=== PATIENT | male | born 1940 | race Caucasian/White ===

== ENCOUNTER → 2023-11-06 06:21 | Day surgery (SDC) | payer OTHER, SELFPAY ==
[2023-11-06 07:51] LABS: Glucose - Point of Care 174 mg/dl (70-99)
== END ==
LOC: GI 06:21
PROVIDERS: ATTENDING PHYSICIAN Internal Medicine Gastroenterology
DX: R13.10 Dysphagia, unspecified (principal); Q39.9 Congenital malformation of esophagus, unspecified; K44.9 Diaphragmatic hernia without obstruction or gangrene; K22.2 Esophageal obstruction; K29.70 Gastritis, unspecified, without bleeding
CPT/HCPCS: 43249; 43239; 88305; 82962

== ENCOUNTER → 2024-05-10 07:40 | Outpatient (REF) | payer OTHER, SELFPAY | LOC: RAD 07:40 | PROVIDERS: ATTENDING PHYSICIAN Internal Medicine Gastroenterology; FAMILY PHYSICIAN Family Medicine | DX: K31.819 Angiodysplasia of stomach and duodenum without bleeding (principal) | CPT/HCPCS: 76700 ==

== ENCOUNTER → 2024-05-31 07:27 | Outpatient (REF) | payer OTHER, SELFPAY | LOC: HWRCS 07:27 | PROVIDERS: ATTENDING PHYSICIAN Nuclear Medicine Nuclear Cardiology; FAMILY PHYSICIAN Physician Assistant | DX: I25.10 Atherosclerotic heart disease of native coronary artery without angina pectoris (principal); R06.09 Other forms of dyspnea | CPT/HCPCS: 78452; 93017; A9500; J2785 ==

== ENCOUNTER → 2024-06-17 07:32 | Outpatient (REF) | payer OTHER, SELFPAY | LOC: RCS 07:32 | PROVIDERS: ATTENDING PHYSICIAN Nuclear Medicine Nuclear Cardiology; FAMILY PHYSICIAN Family Medicine | DX: I25.10 Atherosclerotic heart disease of native coronary artery without angina pectoris (principal); R06.09 Other forms of dyspnea | CPT/HCPCS: 93306 ==

== ENCOUNTER 2024-10-07 21:50 | Inpatient (IN) | payer OTHER, SELFPAY ==
[2024-10-07] VITALS (10 sets, daily range): BP systolic 102–153; BP diastolic 49–92; BMI 22.4
[2024-10-07 18:31] LABS: % Basophils 0.3 % (0-2); % Eosinophils 0.7 % (0-6); % Immature Granulocytes 0.2 % (0-0.5); % Lymphocytes 15.3 % (20.5-51.1); % Monocytes 9.1 % (1.7-9.3); % Neutrophils 74.4 % (42.2-75.2); Absolute Eosinophils 0.1 10^3/uL (0-0.7); Absolute Lymphocytes 1.4 10^3/uL (1.2-3.4); Absolute Monocytes 0.8 10^3/uL (0.1-0.6); Absolute Neutrophils 6.9 10^3/uL (1.4-6.5); Hematocrit 22.6 % (39.0-52.0); Hemoglobin 7.7 g/dL (13.0-18.0); Mean Corp Hgb Conc. 34.1 g/dL (33.0-37.0); Mean Corpuscular Hgb 31.4 pg (27.0-31.0); Mean Corpuscular Volume 92.2 fL (80.0-94.0); Nucleated Red Blood Cells % 0 % (-); Platelet Count 205 10^3/uL (130-400); Red Blood Cell Count 2.45 10^6/uL (4.70-6.10); Red Cell Dist. Width 12.6 % (11.5-14.5); White Blood Cell Count 9.2 10^3/uL (4.8-10.8)
[2024-10-07 18:46] LABS: ALT (SGPT) 19 U/L (0-50); AST (SGOT) 22 U/L (17-59); Albumin 3.6 g/dl (3.5-5.0); Alkaline Phosphatase 71 U/L (38-126); Blood Urea Nitrogen 49 mg/dl (9-20); Calcium 9.1 mg/dl (8.4-10.2); Carbon Dioxide 28 mmol/L (22-30); Chloride 103 mmol/L (98-107); Estimated Creatinine Clearance 28 ml/min; Glucose 224 mg/dl (70-99); Potassium 4.7 mmol/L (3.5-5.1); Sodium 138 mmol/L (135-145); Total Bilirubin 0.5 mg/dl (0.2-1.3); Total Protein 5.6 g/dl (6.3-8.2); eGFR 34.14
--- NOTE | 2024-10-07 19:54 | ED.GENMED ---
History of Present Illness
General
Chief Complaint: Fainting Sensation
Source: patient
Exam Limitations: none
Time Seen by Provider: 10/07/24 19:41
Nursing documentation reviewed up to this point in time: agreed with
History of Present Illness
History of Present Illness:
Patient to ED wt complaint of feeling weak, near syncopal episode at home. State he started feeling weak last PM. States he passed black stool. Today weakness became worse. Brought to ED via EMS for eval. Denies fever/chills, recent illness.
No n/v. No prior history of same.
Past History
Past History
ED Past Medical History: CAD, CVA, GERD, HTN, Hypercholesterolemia, NIDDM and Other (Patient has a heart murmur, jaundice, diverticulosis, esophageal structures, pancreatitis, impaired vision.)
ED Past Surgical History: Cardiac, Cholecystectomy and Other (Has had surgery for left eye, hernia surgery, bilateral foot surgery, CABG, pseudocyst of pancreas strain, multiple esophageal dilations, date place and then reversed)
Social History
Tobacco: Non-smoker
Alcohol: None
Drug: None
Personal:
Living: alone
Employment: Retired
Family History
Family History: Diabetes and Hypertension
Review of Systems
Review of Systems
Allergies reviewed?: Yes
All Other Systems: ROS reviewed and negative except as documented in HPI and ROS
Constitutional: Reports fatigue
EENT: Reports no symptoms
Respiratory: Reports no symptoms
Cardiac: Reports no symptoms
ABD/GI: Reports black stools
: Reports no symptoms
Musculoskeletal: Reports no symptoms
Skin: Reports no symptoms
Neurological: Reports weakness
Psychiatric: Reports no symptoms
Phy Exam
General Physical Exam
General Presentation: mild distress
General age: appears stated age
General Skin: warm and dry
General Habitus: frail
General Mental: alert
Cardiovascular Exam
Cardiovascular Exam: regular rate/rhythm and no edema
Pulmonary Exam
Pulmonary Exam: lungs clear and no respiratory distress
Gastrointestinal Exam
Gastrointestinal Exam: normal bowel sounds, non tender, soft, no organomegaly, non distended and no cva tenderness
Rectal Exam: normal external exam
Stool: maroon
Guaiac Status: grossly bloody - positive
Musculoskeletal Exam
Musculoskeletal Exam: full ROM and neuro vasc intact
Skin Exam
Skin Exam: normal color, warm/dry and no rash
Psychiatric Exam
Psychiatric Exam: normal mood/affect
Course
Orders/Labs/Results
Orders:
Orders
10/07/24 Dinner
NPO
Allow oral meds: Yes
Allow clear liquids: No
NPO with Ice Chips: Yes
10/07/24 17:37
EKG [Electrocardiogram (*1)] Urgent
Reason for Study: Syncope
EKG- Treatment ONCE
10/07/24 18:23
Complete Blood Count/With Diff Urgent
Comprehensive Metabolic Panel Urgent
10/07/24 19:53
* Blood Bank Products Urgent
Blood Bank Products: *Packed RBC Leuko(PRBC's)
Quantity: 1
Transfuse Today: Yes
Reason: Anemia
10/07/24 19:54
0.9% Sodium Chloride 1000 ml [Nss] 1,000 ml IV BOLUS
10/07/24 20:08
Pantoprazole [Protonix IV] 40 mg IV NOW STA
10/07/24 20:24
Type And Crossmatch [Type+Screen] Urgent
10/07/24 21:04
Admit/Transfer Patient As Directed
Co-Sign Provider:
Level of Care: Inpatient admission
Assign to:: Medical/Surgical
Physician / Group: Michelle Solano
Diagnosis: GI bleed, anemia
Reason for Hospitalization: GI bleed, anemia
Expected length of stay greater than two midnights?: Yes
ELOS- Estimated Length of Stay in days: 3
I certify the patient meets the requirements for IP care: Yes
10/07/24 21:05
Code Status As Directed
Resuscitation Status: Full Code
PRN Pain Medication Management As Directed
May give lesser potent ordered pain med per pt: Yes
preference::
Protocol:: Medication orders for pain may be administered in a
manner that supports deferring to patient preference
when the pt is:
- Requesting an ordered lesser potent pain medication.
Least to most potent pain medications are defined
as: acetaminophen < NSAID < tramadol < opioids
(morphine, oxycodone, hydromorphone).
- Requesting a lesser dose of the same medication IF
ORDERED.
- Requesting a less intrusive route of administration
if both routes are prescribed by the provider (PO <
IV).
10/07/24 22:00
Flush (0.9% Sodium Chloride) [Flush (Nss)] See Dose Instructions IV PER PROTOCOL
10/07/24 22:32
0.9% Sodium Chloride 1000 ml [Nss] 1,000 ml IV 80 mls/hr
Dextrose 50%-Water [Dextrose 50% Syringe] 12.5 grams IV [id number] PRN
Gabapentin [Neurontin] 600 mg PO QPM
Glucagon [GlucaGen] 1 mg IM PRN PRN
10/07/24 22:32
Activity As Directed
Activity Level: With Assistance
Bedside Glucose Monitoring As Directed
Frequency: AC&HS
Additional Instructions:: Change to q6h if pt on TPN, tube feeding or not eating
INT (Intravenous Needle Therapy) As Directed
Comment: Place 2 IV catheters of the largest bore possible until stable
Orthostatic Vital Signs As Directed
Orthostatic VS Frequency: Now
Comment: then every four hours for twenty-four hours
Pneumatic Compression Sleeves As Directed
Type: Knee high
Vital Signs As Directed
Frequency: Per unit guidelines
DX Deep Vein Thrombosis Video Routine
10/08/24 06:41
Basic Metabolic Panel IN AM
Complete Blood Count/No Diff IN AM
Ferritin IN AM
Glycohemoglobin (HgbA1c) IN AM
Iron IN AM
Total Iron Binding IN AM
Transferrin [S] IN AM
10/08/24 07:30
Insulin Aspart Corrective Low [Novolog Flexpen-Low Resistance] See Protocol SC AC
10/08/24 08:00
Gabapentin [Neurontin] 300 mg PO BID@0800,1200
Metoprolol [Lopressor] 25 mg PO DAILY
Pantoprazole [Protonix IV] 40 mg IV BID
10/08/24 18:00
Atorvastatin [Lipitor] 40 mg PO QPM
Metoprolol [Lopressor] 50 mg PO QPM
Abnormal Lab Results
10/07/24 10/07/24
18:23 20:24
RBC 2.45 L 10^6/uL
(4.70-6.10)
Hgb 7.7 L g/dL
(13.0-18.0)
Hct 22.6 L %
(39.0-52.0)
MCH 31.4 H pg
(27.0-31.0)
Absolute Neuts (auto) 6.9 H 10^3/uL
(1.4-6.5)
Absolute Monos (auto) 0.8 H 10^3/uL
(0.1-0.6)
Lymphocytes % 15.3 L %
(20.5-51.1)
BUN 49 H mg/dl
(9-20)
Creatinine 1.9 H mg/dL
(0.7-1.3)
Glucose 224 H mg/dl
(70-99)
Total Protein 5.6 L g/dl
(6.3-8.2)
Crossmatch IS Only See Detail
10/07/24 18:23
10/07/24 18:23
Vital Signs
Initial and Last Documented VS:
Initial Vital Signs
Pulse Resp
66 20
10/07/24 17:37 10/07/24 17:37
Last Documented Vital Signs
Temp Pulse Resp BP Pulse Ox
98.1 F 61 18 111/56 95
10/08/24 15:00 10/08/24 15:00 10/08/24 14:00 10/08/24 15:00 10/08/24 15:00
*Critical Care Note
Total Time (30-74mins, 75-104mins- exclusive of procedures): Not Applicable
Update Note
Update Note:
Patient to ED wth complaint of weakness, near syncope at home. Symptoms started last PM, worsened today. Reports black stools last PM, tonight maroon stool. Hg 7.7 (13.1 05/2024). Denies any abd pain. VSS, Order placed for 1uPRBC to be
transfused now. Case discussed with Dr. Arnold who agrees with findings and plan. Will admit to hospitalists service.
ED Attending Note
-
Portions of this chart may have been created with voice recognition software.� Occasional wrong word or��sound alike� substitutions may have occurred due to the inherent limitations of voice recognition software.
Discharge Plan
Departure
Patient Disposition: Admit
Date of Disposition: 10/07/24
Time of Disposition: 20:07
Presentation/result/management discussed w/ accepting MD/DO: Hospitalist
Condition: Fair
Covid-19: Not Applicable
Discharge Problem:
GI bleeding, Anemia
Interventions
Interventions:
*Risk Screen - Suicide Last Done: 10/07/24 17:40
*General Assessment Last Done: 10/07/24 17:40
*Neglect/Abuse Screening Last Done: 10/07/24 17:40
*ED- Fall Risk Assessment Last Done: 10/07/24 17:40
*ED COVID-19 Vaccine History Last Done: 10/07/24 17:40
*Nursing Disposition Last Done: 10/07/24 22:29
ED- Cardiac Assessment Last Done: 10/07/24 17:42
ED- Neurological Assessment Last Done: 10/07/24 17:42
Discharge Date and Time
Discharge Date/Time: 10/07/24 22:33
--- NOTE | 2024-10-07 20:12 | HPS.HSE ---
Family Physician
-
Family Physician: NOT KNOW UNKNOWN - PT DOES
Chief Complaint
-
generalized weakness
History of Present Illness
Patient is a 84-year-old male with past medical history significant for CAD, CVA, GERD, essential hypertension, hypercholesterolemia, diverticulosis, NIDDM and CKD III who presented to [facility] ED for evaluation of generalized weakness and near syncope.
Patient reports watching the [employer] game when he went to stand up he fell, denies hitting head and denies any injuries. He attempted to get up and stated he was too weak. He reports he noticed he was weak yesterday and last night had loose stools
that were dark. He denies any abdominal pain, nausea, vomiting or constipation.
Medical History
Past Medical History
Past Medical History: Reports Other
Additional Past Medical History:
CAD
CVA
GERD
essential hypertension
Hypercholesterolemia
NIDDM
CKD III
heart murmur
jaundice
diverticulosis
esophageal structures
pancreatitis
impaired vision
Past Surgical History: Reports Other
Additional Past Surgical History:
Cardiac cath with PCI
Cholecystectomy
surgery for left eye
hernia surgery
bilateral foot surgery
CABG
pseudocyst of pancreas
multiple esophageal dilations
Social History
Tobacco: Non-smoker
Alcohol: None
Drug: None
Personal:
Living: Alone
Employment: Retired
Family History
Family History: Not pertinent
Allergies / Home Medications
Allergies reflects when Allergies were last updated in [employer].
Home Medications with original date entered in [employer]
Allergy/Medication List:
Allergies
Allergy/AdvReac Type Severity Reaction Status Date / Time
lisinopril Allergy Intermediate Swelling Verified 05/28/23 14:52
Benzodiazepines Allergy HALLUCINATI Verified 05/28/23 14:52
ONS-SEVERE
hydromorphone Allergy SEVERE Verified 05/28/23 14:52
HALLUCINATIONS
lorazepam Allergy HALLUCINATI Verified 05/28/23 14:52
ONS
zolpidem tartrate (From Allergy Rash Verified 05/28/23 14:52
Ambien)
Home Medications
metoprolol tartrate 25 mg tablet 25 mg PO DAILY 10/19/08
aspirin 81 mg tablet,delayed release 81 mg PO QPM 11/17/12
gabapentin 300 mg capsule 300 mg PO BID@0800,1200 11/17/12
pantoprazole 40 mg tablet,delayed release 40 mg PO DAILY 06/27/16
atorvastatin 40 mg tablet 40 mg PO QPM 08/06/16
cholecalciferol (vitamin D3) 25 mcg (1,000 unit) tablet 1,000 units PO DAILY 08/06/16
multivitamin with folic acid 400 mcg tablet (Tab-A-Ara) 1 tab PO DAILY 08/06/16
furosemide 20 mg tablet (Lasix) 20 mg PO DAILY 02/08/23
metoprolol tartrate 25 mg tablet 50 mg PO QPM 02/08/23
omega 2-gse-mwd-fish oil 1,000 mg (120 mg-180 mg) capsule (Fish Oil) 1 cap PO BID 02/08/23
ferrous sulfate 325 mg (65 mg iron) tablet 325 mg PO DAILY 10/07/24
gabapentin 300 mg capsule 600 mg PO QPM 10/07/24
insulin aspart U-100 100 unit/mL (3 mL) subcutaneous pen (Novolog FlexPen U-100 Insulin aspart) 1 sliding scale dose SC AC 10/07/24
insulin glargine 100 unit/mL subcutaneous solution (Lantus U-100 Insulin) 15 unit SC HS 10/07/24
Review of Systems
-
History Source: Patient
Constitutional: Reports Other (generalized weakness)
Abdomen/GI: Reports Diarrhea and Black Stools
Physical Exam
Vital Signs
Vital Signs
Temp Pulse Resp BP Pulse Ox
97.9 F 61 12 102/52 97
10/07/24 17:42 10/07/24 19:00 10/07/24 19:00 10/07/24 18:00 10/07/24 19:00
Physical Exam
General: Well Developed, Well Nourished, No Apparent Distress, Comfortable and Conversant
HEENT: NormoCephalic and Atraumatic
Respiratory: Clear and Non Labored Respirations
Cardiac: S1/S2 and Regular Rhythm
Breast: Deferred by me
GI: Soft, Non Tender, Non Distended and Normal Bowel Sounds
Rectal: Hem Positive and Maroon Stools
Genito-urinary: Deferred by me
Musculoskeletal: No Clubbing, No Cyanosis and No Edema
Skin: Warm, Dry and IV/Catheter Site
Neuro: Awake, Alert, AO x 3 and Nonfocal/grossly intact
Psych: Calm and Intact Judgment/Insight
Laboratory Results
-
10/07/24 18:23
10/07/24 18:23
Laboratory Results
Total Bilirubin 0.5 mg/dl (0.2-1.3) 10/07/24 18:23
AST 22 U/L (17-59) 10/07/24 18:23
ALT 19 U/L (0-50) 10/07/24 18:23
Alkaline Phosphatase 71 U/L (38-126) 10/07/24 18:23
Data Reviewed
-
Medical Tests (Nuc Med, Echo, EKG etc): Report Reviewed by me (EKG: SINUS RHYTHM WITH 1ST DEGREE A-V BLOCK LEFT BUNDLE BRANCH BLOCK)
Lab Data: Labs Reviewed by me (hgb 7.7, hct 22.6, BUN 49, Creat 1.9, eGFR 28, est CrCl 28)
Impression/Plan
-
IMPRESSION/PLAN:
#GI bleed
hgb 7.7, hct 22.6
EKG: SINUS RHYTHM WITH 1ST DEGREE A-V BLOCK
LEFT BUNDLE BRANCH BLOCK
- Admit to telemetry
- Consult GI
- transfuse 1 unit PRBCs
- trend h/h
- iron studies
- NPO
- IVF NSS 80cc/hr
#CAD
#CVA
- hold aspirin
- continue atorvastatin
#GERD
- hold PO Protonix
#essential hypertension
- hold furosemide
- continue metoprolol
#Hypercholesterolemia
- continue atorvastatin
#NIDDM
- AccuCheck AC & HS
- SSI
- continue Lantus at 7 units while NPO
#CKD III
BUN 49, Creat 1.9, eGFR 28, est CrCl 28
- monitor BMP
#diverticulosis
Code status: full code
DVT prophylaxis: SCDs
[2024-10-07] MEDS: NSS 1000 IV ×2 (20:23→23:51)
[2024-10-07] MEDS: PROTONIX IV 40 MG IV (20:23)
--- NOTE | 2024-10-07 20:58 | W.PN.UPDATE ---
Update Note
Progress Note Update
This is an addendum to H&P written by Marion Avalos on 10/07/2024. Patient seen and examined independently with [facility]ER[facility].
84-year-old male past medical history of CAD status post CABG, type 2 diabetes, hypertension, hyperlipidemia, pancreatitis, peripheral neuropathy, iron deficiency anemia, GERD, reflux esophagitis with stricture, hiatal hernia, esophageal stenosis
status post dilation most recently 6 months ago, chronic kidney disease, presenting for weakness, near syncope, black stool per rectum.
Hemoglobin 7.7 from 13.1 previously. Blood sugar 220.
Concern for acute blood loss anemia secondary to upper GI bleeding. IV fluids given. Protonix 40 IV twice daily. 1 unit PRBC transfusion. NPO. GI consulted. Check iron studies.
Hold aspirin. Reduce insulin while NPO.
[2024-10-07] MEDS: LANTUS 0.07 UNITS SC (23:37)
[2024-10-07 23:38] LABS: Glucose - Point of Care 226 mg/dl (70-99)
[2024-10-07] MEDS: NEURONTIN PO (23:51)
[2024-10-08] VITALS (13 sets, daily range): BP systolic 15–141; BP diastolic 50–64; PULSE 65
[2024-10-08 06:05] LABS: Glucose - Point of Care 222 mg/dl (70-99)
[2024-10-08] MEDS: NOVOLOG FLEXPEN-LOW RESISTANCE 2 UNITS SC (06:08)
--- NOTE | 2024-10-08 06:46 | CON.GI ---
Addendum entered and electronically signed by Mariaelena Jean MD 10/08/24 12:46:
I saw and examined the patient.
The CLIENT ASSOCIATE's note was reviewed and I agree with the note.
Comment: Mr. Martínez is a very pleasant 84-year-old male with past medical history as listed below who was initially seeing Dr. Claire and after he retired was seeing Dr. Dubon and has a history of esophageal stenosis requiring multiple dilatations
in the past and was last dilated in October 2023 who now presents with symptomatic anemia with an episode of dark stools since Friday with dizziness and his hemoglobin on admission was noted to be 7.7 and was 13.1 in May. He denies any
abdominal pain or chest pain. On prior endoscopy in October he was also noted to have mild GAVE.
Assessment and plan acute blood loss anemia symptomatic he was on aspirin 81 mg but otherwise denies any use of NSAIDs or anticoagulation prior to admission. Started on PPI twice daily will schedule him for endoscopy and if that is unremarkable
will need to discuss with patient possible colonoscopy and capsule endoscopy. He did have mild GAVE noted on prior endoscopy could be the source of bleeding vs possible PUD/Irwin's erosions he has a history of medium hiatal hernia or small bowel
angioectasias versus colonic source..
Addendum entered and electronically signed by PANDA Hoover 10/08/24 08:32:
iron studies with iron 38, TIBC 308, iron sat 12 ferritin pending likely iron deficiency
Original Note:
Consultation
-
Date/Time Consultation Requested: 10/07/242229
Date/Time Consultation Performed: 10/08/24 0145
Requesting Provider: PANDA Rodriguez
Performing Provider: PANDA Ace, Mariaelena Jean MD
Reason for Consultation: GI bleed
Medical History
Chief Complaint / HPI
History of Present Illness:
Pt is an 84yo with hx CAD on ASA with prior stent/CABG, CVA, CKD, GERD on chronic PPI, fatty liver, prior anika, HTN, diverticulosis, retinal occlusion, NIDDM, prior pancreatitis, hernia repair esophageal stenosis with multiple dilation in past ,
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 He reports recent dark stools. Hx prior EGd 10/2023 with esophageal stenosis with prior dilation, med HH, possible early GAVE bx neg. Colonoscopy 2021 with hemorrhoids otherwise normal. On
admission noted with hbg 7.7 with prior hbg 13.1 in 05/2023. BUN 49 with baseline 20-40. Rectal in ER with maroon stool.
In review with patient he admits to dizziness prior to admission and recent dark stools with loose stool on Friday night and after ER eval. He otherwise denies any issue with dysphagia, odynophagia, nausea, vomiting, abdominal
pain,or constipation. Denies anticoagulation or NSAID use.
Past Medical History
Past Medical History: CAD, CVA, HTN, NIDDM, Renal Failure (CKD), Valvular Disease (MVP) and Other (retinal occlusion, murmur, pancreatitis 2006, esophageal stenosis with prior dilation, dysphagia, GAVE, diverticulosis, fatty liver )
Past Surgical History: Cardiac (PTCA, prior cardiac stent, prior CABG), Cholecystectomy, Orthopedic (knee surgery ) and Other (hernia repair, eye surgery, melanoma removal )
Social History
Tobacco: Non-Smoker
Alcohol: None
Living: Alone
Employment: Retired
Family History
Family History: Other (no family hx colon CA or polyps)
Allergies / Home Medications
Allergy/AdvReac Type Severity Reaction Status Date / Time
Benzodiazepines Allergy HALLUCINATI Verified 10/07/24 22:34
ONS-SEVERE
hydromorphone Allergy SEVERE Verified 10/07/24 22:34
HALLUCINATIONS
lisinopril Allergy Swelling Verified 10/07/24 22:34
lorazepam Allergy HALLUCINATI Verified 10/07/24 22:34
ONS
zolpidem tartrate (From Allergy Rash Verified 05/28/23 14:52
Ambien)
�Medication �Instructions �Recorded
metoprolol tartrate 25 mg tablet 25 mg PO DAILY 10/19/08
aspirin 81 mg tablet,delayed 81 mg PO QPM 11/17/12
release
gabapentin 300 mg capsule 300 mg PO BID@0800,1200 11/17/12
pantoprazole 40 mg tablet,delayed 40 mg PO DAILY 06/27/16
release
atorvastatin 40 mg tablet 40 mg PO QPM 08/06/16
cholecalciferol (vitamin D3) 25 1,000 units PO DAILY 08/06/16
mcg (1,000 unit) tablet
multivitamin with folic acid 400 1 tab PO DAILY 08/06/16
mcg tablet (Tab-A-Ara)
furosemide 20 mg tablet (Lasix) 20 mg PO DAILY 02/08/23
metoprolol tartrate 25 mg tablet 50 mg PO QPM 02/08/23
omega 4-gba-wqi-fish oil 1,000 mg 1 cap PO BID 02/08/23
(120 mg-180 mg) capsule (Fish Oil)
ferrous sulfate 325 mg (65 mg 325 mg PO DAILY 10/07/24
iron) tablet
gabapentin 300 mg capsule 600 mg PO QPM 10/07/24
insulin aspart U-100 100 unit/mL 1 sliding scale dose SC AC 10/07/24
(3 mL) subcutaneous pen (Novolog
FlexPen U-100 Insulin aspart)
insulin glargine 100 unit/mL 15 unit SC HS 10/07/24
subcutaneous solution (Lantus
U-100 Insulin)
Review of Systems
-
History Source: Patient
Constitutional: Reports No Symptoms
EENT: Reports No Symptoms
Respiratory: Reports No Symptoms
Cardiac: Reports No Symptoms
Abdomen/GI: Reports Diarrhea and Other (marroon stool in ER)
: Reports No Symptoms
Musculoskeletal: Reports No Symptoms
Neurological: Reports Dizzy and Weakness
Endocrine: Reports No Symptoms
Hematologic/Lymphatic: Reports Bleeding
Vital Signs
Temp Pulse Resp BP Pulse Ox
98.0 F 70 20 125/57 98
10/08/24 01:58 10/08/24 01:58 10/08/24 01:58 10/08/24 01:58 10/07/24 23:00
Physical Exam
Exam
General: Well Developed, Well Nourished and No Apparent Distress
HEENT: Normocephalic and Anicteric
Respiratory: Clear
Cardiac: Regular Rhythm
GI: Soft, Non Tender and Non Distended
Rectal: Hem Positive (maroon in ER)
Musculoskeletal: No Clubbing and No Cyanosis
Skin: Warm and Dry
Neuro: Awake and Alert
Psych: Calm
Results
WBC 9.2 10^3/uL (4.8-10.8) 10/07/24 18:23
Hgb 7.7 g/dL (13.0-18.0) L 10/07/24 18:23
Hct 22.6 % (39.0-52.0) L 10/07/24 18:23
MCV 92.2 fL (80.0-94.0) 10/07/24 18:23
Plt Count 205 10^3/uL (130-400) 10/07/24 18:23
Absolute Neuts (auto) 6.9 10^3/uL (1.4-6.5) H 10/07/24 18:23
Sodium 138 mmol/L (135-145) 10/07/24 18:23
Potassium 4.7 mmol/L (3.5-5.1) 10/07/24 18:23
Chloride 103 mmol/L (98-107) 10/07/24 18:23
Carbon Dioxide 28 mmol/L (22-30) 10/07/24 18:23
BUN 49 mg/dl (9-20) H 10/07/24 18:23
Creatinine 1.9 mg/dL (0.7-1.3) H 10/07/24 18:23
Calcium 9.1 mg/dl (8.4-10.2) 10/07/24 18:23
Total Bilirubin 0.5 mg/dl (0.2-1.3) 10/07/24 18:23
AST 22 U/L (17-59) 10/07/24 18:23
ALT 19 U/L (0-50) 10/07/24 18:23
Alkaline Phosphatase 71 U/L (38-126) 10/07/24 18:23
Diagnostic Image Results:
04/2024
IMPRESSION: Prior cholecystectomy. Stable
Hepatic fatty infiltration. New
Nonvisualization of the pancreas.
Right renal atrophy. This can be seen with renal artery stenosis. Stable
Prior GI Procedures:
EGD 11/06/2023 [place] for dysphagia
Torturous esophagus. Benign-appearing esophageal stenosis at GEJ/28 to 30 cm from incisors. Dilatation was performed up to 18 mm.
Medium size hiatal hernia
Esophageal biopsies negative for EOE.
Erythematous changes in the gastric body and in the antrum. Possible early GAVE. --
Prior biopsy showing inactive� negative for H. pylori
11/2021 [facility] colonoscopy - Internal hemorrhoids.
- The entire examined colon is normal.
- No specimens collected.
Assessment / Plan
-
Pt is an 84yo with hx CAD on ASA with prior stent/CABG, CVA, CKD, GERD on chronic PPI, fatty liver, prior anika, HTN, diverticulosis, retinal occlusion, NIDDM, prior pancreatitis, hernia repair esophageal stenosis with multiple dilation in past ,
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 He reports recent dark stools. Hx prior EGd 10/2023 with esophageal stenosis with prior dilation, med HH, possible early GAVE bx neg. Colonoscopy 2021 with hemorrhoids otherwise normal. On
admission noted with hbg 7.7 with prior hbg 13.1 in 05/2023. BUN 49 with baseline 20-40. Rectal in ER with maroon stool.
-symptomatic anemia
-maroon stool in ER
-near syncope prior to admission
-GERD on chronic PPI
-hx esophageal stenosis with prior dilation
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
-fall several weeks ago
other med problems:
-CAD with prior stent/CABG
-CVA
-CKD
-NIDDM
-fatty liver
-anika/hernia repair
-retinal occlusion
-diverticulosis
-prior pancreatitis
PLAN:
Etiology of bleeding related to early GAVE noted on prior EGD vs SB or colonic bleeding with marroon stool noted in exam in ER
hbg with drop 7.7 from 13 in 2023 cont to trend
1 unit PRBC given on admission and hbg 7.1 today will give additional unit
follow stool pattern
will plan for EGD today if neg consider colonoscopy then capsule
cont PPI BID
updated Dr. Atkinson and nursing staff
-
-
-
Thank you for consultation and allowing me to participate in the patient's care. Please call the assembly person GI physician during the after hours with any questions or concerns.
[2024-10-08 07:07] LABS: Hemoglobin 7.1 g/dL (13.0-18.0); Mean Corp Hgb Conc. 33.8 g/dL (33.0-37.0); Mean Corpuscular Hgb 30.6 pg (27.0-31.0); Mean Corpuscular Volume 90.5 fL (80.0-94.0); Mean Platelet Volume 10.2 fL (7.4-10.4); Platelet Count 162 10^3/uL (130-400); Red Blood Cell Count 2.32 10^6/uL (4.70-6.10); Red Cell Dist. Width 14.1 % (11.5-14.5); White Blood Cell Count 5.5 10^3/uL (4.8-10.8)
[2024-10-08] MEDS: LOPRESSOR 25 MG PO (07:34)
[2024-10-08] MEDS: PROTONIX IV 40 MG IV ×2 (07:34→20:36)
[2024-10-08] MEDS: NSS (PRESERVATIVE FREE) 10 ML IV ×2 (07:35→20:37)
[2024-10-08] MEDS: NEURONTIN PO (07:46)
[2024-10-08 08:07] LABS: Blood Urea Nitrogen 44 mg/dl (9-20); Calcium 8.5 mg/dl (8.4-10.2); Carbon Dioxide 29 mmol/L (22-30); Chloride 108 mmol/L (98-107); Estimated Creatinine Clearance 33 ml/min; Glucose 202 mg/dl (70-99); Iron 38 ug/dl (49-181); Potassium 4.2 mmol/L (3.5-5.1); Sodium 140 mmol/L (135-145); eGFR 41.96
[2024-10-08 08:17] LABS: Percent Saturation 12 % (20-50); Total Iron Binding Capacity 308 ug/dl (261-462)
--- NOTE | 2024-10-08 08:47 | W.PN.HOSP.TC ---
Today's Communication/Plan
-
see a/p
Assessment / Plan
Assessment / Plan
Physical Exam
General: No Apparent Distress, appears Comfortable
HEENT: NormoCephalic and Atraumatic
Respiratory: Clear and Non Labored Respirations
Cardiac: S1/S2 and Regular Rhythm
GI: Soft, Non Tender, Non Distended and Normal Bowel Sounds
Musculoskeletal: No Clubbing, No Cyanosis and No Edema
Skin: Warm, Dry and IV/Catheter Site
Neuro: AOx3 conversant coherent
Psych: Calm and Intact Judgment/Insight
84M CAD CVA GERD HTN HLD Diverticulosis NIDDM CKDIII here for evaluation GIB w/ associate anemia.
#GI bleed
#Severe Iron Deficiency anemia
-Tele admit
- 2 PRBC over the course of hospitalization
- trend h/h, transfuse prn Hgb<8
- iron studies appreciated as above, IV iron infusion
- Consult GI appreciated small bowel endoscopy noted no source of bleeding, possible colonoscopy if bleeding persists vs outpt VCE or DBE
#CAD
#CVA
- cont ASA
- continue atorvastatin
#GERD
- IV protonix
#essential hypertension
- hold furosemide when NPO
- continue metoprolol
#Hypercholesterolemia
- continue atorvastatin
#NIDDM
- AccuCheck AC & HS
- SSI
-Monitor and titrate insulin regimen as necessary
#CKD III
monitor renal function
#diverticulosis
Code status: full code
DVT prophylaxis: SCDs
discussed with patient and patient's son Emigdio
I spent a total of 50 minutes with the patient or on the floor. More than 50% of this time involved counseling and coordination of care.
Anticipated Discharge: 24 - 48 hours
Subjective/Interval History
-
Date of Service: October 08, 2024
No acute distress resting comfortably in bed. recently completed small bowel endoscopy. no bowel movements since admission. Denies pain nausea vomiting lightheadedness dizziness
Objective Data
-
Labs:
Laboratory Results
10/08/24 10/08/24 10/08/24
06:41 06:41 06:41
WBC 5.5
Hgb Cancelled 7.1 L
Hct Cancelled 21.0 L
Plt Count 162 D
Sodium 140
Potassium 4.2
Chloride 108 H
Carbon Dioxide 29
BUN 44 H
Creatinine 1.6 H
Glucose 202 H
Calcium 8.5
Vital Signs:
Vital Signs
Temp Pulse Resp BP Pulse Ox
97.8 F 67 18 118/58 97
10/08/24 07:33 10/08/24 07:33 10/08/24 07:33 10/08/24 07:33 10/08/24 07:33
I&O
10/07/24 10/08/24 10/09/24
06:59 06:59 06:59
Intake Total 1060 / 1060
Output Total 1050 / 1050
Balance
[2024-10-08 08:50] LABS: Ferritin 9.8 ng/ml (17.9-464.0)
[2024-10-08 10:06] LABS: Glycohemoglobin (HgbA1c) 7.1 % (4.0-5.6)
[2024-10-08] MEDS: NSS IV (11:31)
[2024-10-08] MEDS: NOVOLOG FLEXPEN-LOW RESISTANCE SC (11:32)
[2024-10-08 12:02] LABS: Glucose - Point of Care 193 mg/dl (70-99)
[2024-10-08] MEDS: NSS 1000 IV (14:24)
[2024-10-08] MEDS: FERRLECIT 110 MG IV (14:27)
[2024-10-08] MEDS: NEURONTIN 200 MG PO ×2 (16:29→22:30)
[2024-10-08] MEDS: LOPRESSOR 50 MG PO (16:30)
[2024-10-08] MEDS: LIPITOR 40 MG PO (16:31)
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
[2024-10-08 17:01] LABS: Glucose - Point of Care 268 mg/dl (70-99)
[2024-10-08] MEDS: NOVOLOG FLEXPEN-LOW RESISTANCE 3 UNITS SC (17:13)
[2024-10-08 17:16] LABS: Hematocrit 25.6 % (39.0-52.0); Hemoglobin 8.9 g/dL (13.0-18.0)
[2024-10-08] MEDS: ASPIR LOW (ENTERIC COATED) 81 MG PO (20:36)
[2024-10-08 21:20] LABS: Glucose - Point of Care 236 mg/dl (70-99)
[2024-10-08] MEDS: LANTUS 0.07 UNITS SC (22:29)
[2024-10-09] MEDS: NSS 1000 IV (03:50)
--- NOTE | 2024-10-09 07:15 | W.PN.HOSP.TC ---
Today's Communication/Plan
-
discharge
Assessment / Plan
Assessment / Plan
Physical Exam
General: No Apparent Distress, appears Comfortable
HEENT: NormoCephalic and Atraumatic
Respiratory: Clear and Non Labored Respirations
Cardiac: S1/S2 and Regular Rhythm
GI: Soft, Non Tender, Non Distended and Normal Bowel Sounds
Musculoskeletal: No Clubbing, No Cyanosis and No Edema
Skin: Warm, Dry and IV/Catheter Site
Neuro: AOx3 conversant coherent
Psych: Calm and Intact Judgment/Insight
84M CAD CVA GERD HTN HLD Diverticulosis NIDDM CKDIII here for evaluation GIB w/ associate anemia.
#GI bleed
#Severe Iron Deficiency anemia
-Tele admit
- 2 PRBC over the course of hospitalization
- iron studies appreciated as above, IV iron infusion given during stay
- Anemia since significantly improved. outpatient Hematology follow up recommended.
- Consult GI appreciated small bowel endoscopy noted no source of bleeding, Outpt follow up recommended
#CAD
#CVA
- cont ASA
- continue atorvastatin
#GERD
- cont protonix
#essential hypertension
- continue home metoprolol Lasix
#Hypercholesterolemia
- continue atorvastatin
#NIDDM
- AccuCheck AC & HS
- SSI
-Monitor and titrate insulin regimen as necessary
#CKD III
monitor renal function
#diverticulosis
Code status: full code
DVT prophylaxis: SCDs
Medically stable for discharge home with home services and outpatient follow up recommendations.
discussed with patient and patient's son Emigdio
Total Time Preparing Discharge __40 minutes including examination of the patient, summary of the hospital stay, instructions for continuing care to all relevant caregivers; and preparation of discharge records, prescriptions, and referral
forms if necessary.
Anticipated Discharge: Today
Subjective/Interval History
-
Date of Service: October 09, 2024
No acute distress. Overall reports feeling well. Tolerating diet. Denies new bloody bowel movements. Eager to go home
Objective Data
-
Labs:
Laboratory Results
10/09/24
06:00
WBC Pending
Hgb Pending
Hct Pending
Plt Count Pending
Sodium Pending
Potassium Pending
Chloride Pending
Carbon Dioxide Pending
BUN Pending
Creatinine Pending
Glucose Pending
Calcium Pending
Vital Signs:
Vital Signs
Temp Pulse Resp BP Pulse Ox
98.1 F 61 18 111/56 95
10/08/24 15:00 10/08/24 15:00 10/08/24 14:00 10/08/24 15:00 10/08/24 15:00
I&O
10/08/24 10/09/24 10/10/24
06:59 06:59 06:59
Intake Total 1060 / 1060 750 / 750
Output Total 1050 / 1050 575 / 575
Balance 175 / 175
[2024-10-09] MEDS: NEURONTIN 200 MG PO ×2 (07:41→15:13)
[2024-10-09] MEDS: PROTONIX IV 40 MG IV (07:41)
[2024-10-09] MEDS: NSS (PRESERVATIVE FREE) 10 ML IV (07:41)
[2024-10-09 07:45] VITALS: BP 146/58
[2024-10-09] MEDS: LOPRESSOR 25 MG PO (07:45)
[2024-10-09 07:46] LABS: Glucose - Point of Care 194 mg/dl (70-99)
[2024-10-09] MEDS: NOVOLOG FLEXPEN-LOW RESISTANCE 1 UNITS SC (07:46)
[2024-10-09 08:20] LABS: Hematocrit 27.2 % (39.0-52.0); Hemoglobin 9.3 g/dL (13.0-18.0); Mean Corp Hgb Conc. 34.2 g/dL (33.0-37.0); Mean Corpuscular Hgb 30.6 pg (27.0-31.0); Mean Corpuscular Volume 89.5 fL (80.0-94.0); Mean Platelet Volume 10.1 fL (7.4-10.4); Platelet Count 164 10^3/uL (130-400); Red Blood Cell Count 3.04 10^6/uL (4.70-6.10); Red Cell Dist. Width 14.8 % (11.5-14.5); White Blood Cell Count 7.4 10^3/uL (4.8-10.8)
--- NOTE | 2024-10-09 08:39 | W.PN.GI.CBS2 ---
Today's Communication / Plan
-
will adv diet and OK to DC home if no further bleeding
Assessment / Plan
-
Pt is an 84yo with hx CAD on ASA with prior stent/CABG, CVA, CKD, GERD on chronic PPI, fatty liver, prior anika, HTN, diverticulosis, retinal occlusion, NIDDM, prior pancreatitis, hernia repair esophageal stenosis with multiple dilation in past ,
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 He reports recent dark stools. Hx prior EGd 10/2023 with esophageal stenosis with prior dilation, med HH, possible early GAVE bx neg. Colonoscopy 2021 with hemorrhoids otherwise normal. On
admission noted with hbg 7.7 with prior hbg 13.1 in 05/2023. BUN 49 with baseline 20-40. Rectal in ER with maroon stool.
-symptomatic anemia
-maroon stool in ER
-near syncope prior to admission
-GERD on chronic PPI
-hx esophageal stenosis with prior dilation
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
-fall several weeks ago
other med problems:
-CAD with prior stent/CABG
-CVA
-CKD
-NIDDM
-fatty liver
-anika/hernia repair
-retinal occlusion
-diverticulosis
-prior pancreatitis
PLAN:
Likely has a component of chronic GI blood loss and acute blood loss anemia and was symptomatic.
Hemoglobin improved and is stable post 2 units of packed red blood cells
Enteroscopy with no active bleeding does have evidence of mild GAVE and mild gastritis but no active bleeding noted doubt that acute anemia was related to GAVE, unclear if he has possible small bowel angioectasias or less likely colonic source for
the bleeding. His last colonoscopy was in 2021 which showed internal hemorrhoids and was otherwise unremarkable
Discussed at length with patient since hemoglobin is stable and he has not had any further bleeding he wants to hold off on colonoscopy.
If has further drop in hemoglobin or has recurrent bleeding as outpatient I told him to call us back and will proceed with colonoscopy and capsule endoscopy versus DBE
His last colonoscopy was in [address] Claire which showed internal hemorrhoids and was otherwise normal
Will advance diet and if tolerates and no further bleeding okay to DC home today with outpatient follow-up
-
Subjective
Subjective
Date of Service: October 09, 2024
No further bleeding and he has not had a bowel meant since yesterday and hemoglobin remained stable posttransfusion, he received 2 units of packed red blood cells yesterday and hemoglobin improved from 7.7-9.3
Objective
Data Reviewed
Laboratory Data:
Laboratory Results
10/09/24 07:17
Laboratory Results
Total Bilirubin 0.5 mg/dl (0.2-1.3) 10/07/24 18:23
AST 22 U/L (17-59) 10/07/24 18:23
ALT 19 U/L (0-50) 10/07/24 18:23
Alkaline Phosphatase 71 U/L (38-126) 10/07/24 18:23
Vital Signs and I&O:
Vital Signs
Temp Pulse Resp BP Pulse Ox
97.9 F 65 18 146/58 97
10/09/24 07:45 10/09/24 07:45 10/09/24 07:45 10/09/24 07:45 10/09/24 07:45
I&O
10/08/24 10/09/24 10/10/24
06:59 06:59 06:59
Intake Total 1060 / 1060 750 / 750
Output Total 1050 / 1050 575 / 575
Balance 175 / 175
Physical Exam
Physical Exam
Cardiology: Normal Sinus Rhythm
Pulmonary: Clear
GI: Soft, Non Distended, Non Tender and Normal Bowel Sounds
[2024-10-09 09:03] LABS: Blood Urea Nitrogen 32 mg/dl (9-20); Calcium 9.1 mg/dl (8.4-10.2); Carbon Dioxide 27 mmol/L (22-30); Chloride 108 mmol/L (98-107); Estimated Creatinine Clearance 37 ml/min; Glucose 191 mg/dl (70-99); Magnesium 1.8 mg/dl (1.6-2.3); Phosphorus 2.6 mg/dl (2.5-4.5); Potassium 4.4 mmol/L (3.5-5.1); Sodium 140 mmol/L (135-145); eGFR 49.25
--- NOTE | 2024-10-09 12:03 | CM ---
Addendum entered by Susan Lroedo 10/09/24 14:36:
Patient for d/c today
[facility] accepted for services
IMM verbally reviewed, copy given, copy on chart
Original Note:
Patient seen bedside, initial assessment completed. Patient is a 84-year-old male with past medical history significant for CAD, CVA, GERD, essential hypertension, hypercholesterolemia, diverticulosis, NIDDM and CKD III who presented to [facility] ED for
evaluation of generalized weakness and near syncope.
Patient resides alone in a 3STH- 5 steps to enter the home. Independent w/ ambulation and ADLs, no DME reported. No SNF/HC hx reported
Address, points of contact and insurance verified
PCP: Johann Stern
Pharmacy: [facility]. Patient uses [facility] for mail orders
PT assessed patient, rec home PT. Per patient he is agreeable to home PT, agreeable to [facility], referral placed in [facility]
Plan: Home w/ [facility] when stable
[2024-10-09 12:04] LABS: Glucose - Point of Care 315 mg/dl (70-99)
[2024-10-09] MEDS: NOVOLOG FLEXPEN-LOW RESISTANCE 4 UNITS SC (12:11)
[2024-10-09 13:40] VITALS: BP 146/63; PULSE 67; O2SAT 99
[2024-10-09] MEDS: FERRLECIT 110 MG IV (13:46)
[2024-10-09] MEDS: NSS IV (14:21)
--- NOTE | 2024-10-09 15:01 | W.DCSUMMARY ---
Discharge Summary
Discharge Data
Date of Admission: 10/07/24
Date of Discharge: 10/09/24
-
Pending Results: No
Discharge Plan
-
Patient Disposition: Home with Home Care
Discharge Diagnosis/Procedures: GI bleed unclear source
Severe Iron Deficiency anemia
Condition: Fair
Diet: Diabetic, Carb Controlled
Activity: As tolerated
Driving Restrictions: As prior to admission
Bathing Restrictions: None
Blood Work: repeat CBC and BMP with primary care provider in 1 week of discharge
Others Tests: Follow up with GI for possible benefit colonoscopy vs video capsule endoscopy vs double balloon enteroscopy
Other Services: PT and OT
Activity Restrictions/Additional Instructions:
Follow up with primary care provider in 1 week of discharge. In two to four weeks of discharge, follow up with GI and Hematology.
Referrals:
Eitan Mac DO [Active, Hematology / Oncology] - in two to four weeks
Fazal Dubon MD [Active, Gastroenterology] - in two to four weeks
UNKNOWN - PT DOES,NOT KNOW [Family Provider]
Prescriptions:
Continued
metoprolol tartrate 25 MG tablet
25 mg PO DAILY
aspirin 81 MG tablet,delayed release (DR/EC)
81 mg PO QPM
gabapentin 300 MG capsule
300 mg PO BID@0800,1200
pantoprazole 40 MG tablet,delayed release (DR/EC)
40 mg PO DAILY
atorvastatin 40 MG tablet
40 mg PO QPM
cholecalciferol (vitamin D3) 1,000 UNITS tablet
1,000 units PO DAILY
multivitamin with folic acid [Tab-A-Ara] 1 TABLET tablet
1 tab PO DAILY
metoprolol tartrate 25 mg Tablet
50 mg PO QPM
furosemide [Lasix] 20 mg Tablet
20 mg PO DAILY
omega 2-gmq-elv-fish oil [Fish Oil] 1,000 mg (120 mg-180 mg) Capsule
1 cap PO BID
insulin glargine [Lantus U-100 Insulin] 100 unit/mL Solution
15 unit SC HS
ferrous sulfate 325 mg (65 mg iron) Tablet
325 mg PO DAILY
gabapentin 300 mg Capsule
600 mg PO QPM
insulin aspart U-100 [Novolog FlexPen U-100 Insulin] 100 unit/mL (3 mL) Insulin Pen
1 sliding scale dose SC AC
Discharge Orders:
Discharge Patient (As Directed); Ordered 10/09/24
Ordered By: Arabella Marcus
Discharge Date and Time
Print Language: NIGERIEN
[2024-10-09 15:46] VITALS: BP 149/62
[2024-10-10 03:38] LABS: Transferrin 217 mg/dL (200-360)
== END 2024-10-09 15:50 | disposition home health service (06) | DRG 378 ==
LOC: 4 WEST ACU 21:50
PROVIDERS: Nurse Practitioner Adult Health; Nurse Practitioner Family; ADMITTING PHYSICIAN Hospitalist; ATTENDING PHYSICIAN Internal Medicine; CONSULT PHYSICIAN Internal Medicine Gastroenterology; EMERGENCY PHYSICIAN Emergency Medicine
PROC: 30233N1 Transfusion of Nonautologous Red Blood Cells into Peripheral Vein, Percutaneous Approach (ICD-10-PCS; 2024-10-07)
PROC: 0DJ08ZZ Inspection of Upper Intestinal Tract, Via Natural or Artificial Opening Endoscopic (ICD-10-PCS; 2024-10-08)
DX: K31.811 Angiodysplasia of stomach and duodenum with bleeding (principal); D62 Acute posthemorrhagic anemia; I25.10 Atherosclerotic heart disease of native coronary artery without angina pectoris; Z95.5 Presence of coronary angioplasty implant and graft; Z86.73 Personal history of transient ischemic attack (TIA), and cerebral infarction without residual deficits; K21.9 Gastro-esophageal reflux disease without esophagitis; I12.9 Hypertensive chronic kidney disease with stage 1 through stage 4 chronic kidney disease, or unspecified chronic kidney disease; N18.30 Chronic kidney disease, stage 3 unspecified; E78.00 Pure hypercholesterolemia, unspecified; K57.30 Diverticulosis of large intestine without perforation or abscess without bleeding; K22.2 Esophageal obstruction; K44.9 Diaphragmatic hernia without obstruction or gangrene; D50.9 Iron deficiency anemia, unspecified
CPT/HCPCS: 80048; 80053; 82728; 82962; 83036; 83540; 83550; 83735; 84100; 84466; 85014; 85018; 85025; 85027; 86850; 86900; 86901; 86920; 93005; 96361; 96374; 97162; 97166; 99284; J2916; P9016

== ENCOUNTER 2024-12-05 20:23 | Emergency (ER) | payer OTHER, SELFPAY ==
[2024-12-05 20:26] VITALS: BP 118/67
[2024-12-05 21:28] VITALS: BP 149/70
[2024-12-05 21:29] VITALS: BMI 23.1
[2024-12-05 22:00] VITALS: BP 148/65
[2024-12-05 22:03] LABS: Hematocrit 36.0 % (39.0-52.0); Hemoglobin 11.9 g/dL (13.0-18.0); Mean Corp Hgb Conc. 33.1 g/dL (33.0-37.0); Mean Corpuscular Volume 90.9 fL (80.0-94.0); Nucleated Red Blood Cells % 0 % (-); Platelet Count 202 10^3/uL (130-400); Red Cell Dist. Width 16.5 % (11.5-14.5)
[2024-12-05 22:16] LABS: ALT (SGPT) 22 U/L (0-50); AST (SGOT) 31 U/L (17-59); Albumin 4.4 g/dl (3.5-5.0); Alkaline Phosphatase 69 U/L (38-126); Blood Urea Nitrogen 31 mg/dl (9-20); Calcium 9.6 mg/dl (8.4-10.2); Carbon Dioxide 31 mmol/L (22-30); Chloride 98 mmol/L (98-107); Estimated Creatinine Clearance 32 ml/min; Glucose 237 mg/dl (70-99); Lipase 67 U/L (23-300); Potassium 4.6 mmol/L (3.5-5.1); Sodium 138 mmol/L (135-145); Total Protein 7.0 g/dl (6.3-8.2); eGFR 39.02
[2024-12-05 22:23] LABS: Urine Character Clear (Clear)
--- NOTE | 2024-12-05 22:30 | ED.GENMED ---
History of Present Illness
General
Chief Complaint: Abdominal Pain
Source: patient
Exam Limitations: none
Time Seen by Provider: 12/05/24 22:15
Nursing documentation reviewed up to this point in time: agreed with
History of Present Illness
History of Present Illness:
Note:
CHIEF COMPLAINT(S)
Nausea and stomach pain.
HISTORY OF PRESENT ILLNESS
The patient is an 84-year-old male with a history of hypertension, hyperlipidemia, coronary artery disease, diabetes, multiple abdominal surgeries, including hernia repairs and cholecystectomy, presenting with nausea and stomach pain. The symptoms
began today while at a [place]. The patient described feeling nauseated but did not vomit and experienced pain centralized in the middle of the abdomen. The pain did not radiate to the back and resolved after resting for several hours. No
chest pain, fever, diarrhea, or urinary symptoms were reported. The patient has occasional swallowing difficulties and mucus in the esophagus, which sometimes lead to the sensation of liquids being obstructed. The patient had a bowel movement this
morning, and the pain subsided without any identifiable trigger. He feels well now. He follows with gastroenterology for esophageal strictures and chronic dysphagia. He follows with nephrology for chronic kidney disease. He follows with
[facility] for anemia.
ADDITIONAL HISTORY OBTAINED FROM SOURCES OTHER THAN THE PATIENT
Per the patients son, when he picked the patient up at his house to bring him to the ER, the patient appeared uncomfortable.
CHRONIC MEDICAL CONDITIONS SIGNIFICANTLY AFFECTING CARE
The patient has a history of multiple abdominal surgeries, including hernia repairs and a previous pseudocyst operation approximately 17 years ago, which resulted in a prolonged hospitalization. The patient has a history of esophageal issues
requiring multiple endoscopies (32 total) with no significant findings other than a stricture.
PAST SURGICAL HISTORY
Significant for hernia repairs, cholecystectomy, and a pseudocyst operation.
REVIEW OF SYSTEMS
- Gastrointestinal: Nausea and stomach pain resolving with rest. Occasional difficulty swallowing with sensation of obstruction by mucus.
- Urinary: No burning or other urinary symptoms mentioned.
- General: No fever, no vomiting, and the patient reports feeling back to his baseline.
PHYSICAL EXAM
- Nursing notes reviewed and vital signs reviewed.
General: Patient is well appearing and in no acute distress; non-toxic
Skin: Warm and dry, no rashes or lesions
Head: Normocephalic, atraumatic
Eyes: Sclera non-icteric. EOMs intact.
Cardiac: Regular rate and rhythm, no murmurs
Peripheral Vascular: No lower extremity swelling or edema
Pulm: Normal respiratory effort, no wheezes, rales, or rhonchi
Abdomen: No abdominal tenderness to palpation, soft, no palpable abdominal masses, normoactive bowel sounds
Neuro: CN II-XII intact, no focal neurologic deficits.
Psychiatric: Appropriate mood and affect.
PLAN
1. Perform a computed tomography scan of the abdomen, using oral contrast to avoid potential kidney damage from intravenous contrast; assess for bowel obstruction.
2. Assess the patients ability to ingest oral contrast given his occasional swallowing difficulties.
3. Evaluate the patients condition post-scan to determine if hospitalization is required or if discharge with follow-up is appropriate.
4. Continue follow-up with the endodontic assistant for further evaluation and management of esophageal issues.
5. Confirm upcoming blood work for December 16 with hematology/oncology and nephrology for further evaluation related to unspecified concerns.
DIFFERENTIAL DIAGNOSIS
The Differential Diagnosis includes, in no particular order and is not limited to:
1. Gastroesophageal reflux disease
2. Peptic ulcer disease
3. Esophageal stricture
4. Esophageal spasm
5. Gastritis
6. Bowel obstruction
7. Infection or gastroenteritis
8. Pancreatitis
9. Food allergy or intolerance
10. Gallstone disease
CHART REVIEW
Reviewed visit summary from December 01, 2024 patient seen for esophageal dysphagia and had a EGD in September which showed esophageal stenosis
Reviewed external summary from November 23, 2024 patient was noted to have stable chronic renal disease likely related to diabetes and he is unable to use BRIAN inhibitor's due to angio edema, he has follow-up appointment in a few months
Reviewed discharge summary from 10/09/2024 patient seen for severe iron deficiency anemia and had infusion done and had endoscopy which showed no source of bleeding
MDM REVIEWED
The patient is an 84-year-old male with a history of hypertension, hyperlipidemia, coronary artery disease, diabetes, multiple abdominal surgeries, including hernia repairs and cholecystectomy, presenting with nausea and stomach pain. This started
while he was at a [facility] earlier today. All his symptoms have resolved. He denies any fevers or chills, burning with urination, pelvic pain. He got blood work done which revealed leukocytosis which I think is likely reactive. His
hemoglobin is improving from baseline. His CBC shows stable chronic renal disease. His urinalysis shows microscopic hematuria but no signs of infection. He went to get a CAT scan which revealed mild pancreatic stranding however his lipase is
normal do not suspect acute pancreatitis. No other acute abnormalities. Moderate stool burden. Discussed with patient that constipation may have been related to his symptoms versus nausea associated with chronic dysphagia and difficulty
swallowing. Discussed close outpatient follow-up. Notification for admission at this time. Patient stable for discharge.
Past History
Past History
ED Past Medical History: CAD, CVA, GERD, HTN, Hypercholesterolemia, NIDDM and Other (Patient has a heart murmur, jaundice, diverticulosis, esophageal structures, pancreatitis, impaired vision.)
ED Past Surgical History: Cardiac, Cholecystectomy and Other (Has had surgery for left eye, hernia surgery, bilateral foot surgery, CABG, pseudocyst of pancreas strain, multiple esophageal dilations, date place and then reversed)
Social History
Tobacco: Non-smoker
Alcohol: None
Drug: None
Personal:
Living: alone
Employment: Retired
Family History
Family History: Diabetes and Hypertension
Phy Exam
Physical Exam
Physical Exam:
see hpi
Course
Orders/Labs/Results
Orders:
Orders
12/05/24 20:39
IV Insert/Care/Rem.- Treatment PRN
12/05/24 21:37
Complete Blood Count/With Diff Urgent
Comprehensive Metabolic Panel Urgent
Lipase Urgent
12/05/24 22:14
Urinalysis Reflex To Culture Urgent
Date Specimen was Collected: 12/05/24
Time Specimen was Collected: 20:39
Urine Microscopic Reflex Cult Urgent
12/05/24 22:44
Iohexol [Omnipaque] See Protocol PO NOW STA
12/05/24 23:11
Gabapentin [Neurontin] 600 mg PO NOW STA
12/06/24 00:43
Electrocardiogram (*1) Urgent
Reason for Study: Abdominal Pain
12/06/24 00:55
CT Abd/pel (oral only)-[facility] Only Urgent
Reason For Exam: periumbilical pain
Abnormal Lab Results
12/05/24 12/05/24
21:37 22:14
WBC 13.2 H 10^3/uL
(4.8-10.8)
RBC 3.96 L 10^6/uL
(4.70-6.10)
Hgb 11.9 L g/dL
(13.0-18.0)
Hct 36.0 L %
(39.0-52.0)
RDW 16.5 H %
(11.5-14.5)
Abs Immat Gran (auto) 0.1 H 10^3/uL
(0-0.05)
Absolute Neuts (auto) 11.3 H 10^3/uL
(1.4-6.5)
Absolute Lymphs (auto) 0.6 L 10^3/uL
(1.2-3.4)
Absolute Monos (auto) 1.2 H 10^3/uL
(0.1-0.6)
Neutrophils % 85.4 H %
(42.2-75.2)
Lymphocytes % 4.8 L %
(20.5-51.1)
Carbon Dioxide 31 H mmol/L
(22-30)
BUN 31 H mg/dl
(9-20)
Creatinine 1.7 H mg/dL
(0.7-1.3)
Glucose 237 H mg/dl
(70-99)
Ur Occult Blood Reflex 2+ A
(Negative)
Urine RBC 26-30 A /HPF
(0-2)
Urine Bacteria (Reflex) Few A
(Negative)
Urine Glucose 3+ A
(Negative)
Urine Albumin (Reflex) 3+ A
(Neg - Trace)
12/05/24 21:37
12/05/24 21:37
Vital Signs
Initial and Last Documented VS:
Initial Vital Signs
Temp Pulse Resp BP Pulse Ox
98.5 F 81 16 118/67 94
12/05/24 20:26 12/05/24 20:26 12/05/24 20:26 12/05/24 20:26 12/05/24 20:26
Last Documented Vital Signs
Temp Pulse Resp BP Pulse Ox
98.5 F 81 16 129/55 91
12/05/24 20:26 12/05/24 20:26 12/05/24 20:26 12/06/24 02:00 12/06/24 02:00
*Pulse Oximetry
SaO2: 93
Oxygen Mode of Delivery: Room air
Patient hypoxic: no
*Critical Care Note
Total Time (30-74mins, 75-104mins- exclusive of procedures): Not Applicable
ED Attending Note
-
Portions of this chart may have been created with voice recognition software.� Occasional wrong word or��sound alike� substitutions may have occurred due to the inherent limitations of voice recognition software.
Discharge Plan
Departure
Patient Disposition: Home (Routine Discharge)
Date of Disposition: 12/06/24
Time of Disposition: 02:12
Patient with high blood pressure during this ER visit?: Yes
Condition: Good
Discharge Problem:
Abdominal pain, Microscopic hematuria
Instructions: Blood in the urine (hematuria) in adults, Abdominal Pain, BLOOD PRESSURE
Prescriptions:
No Action
metoprolol tartrate 25 MG tablet
25 mg PO DAILY
aspirin 81 MG tablet,delayed release (DR/EC)
81 mg PO QPM
gabapentin 300 MG capsule
300 mg PO BID@0800,1200
pantoprazole 40 MG tablet,delayed release (DR/EC)
40 mg PO DAILY
atorvastatin 40 MG tablet
40 mg PO QPM
cholecalciferol (vitamin D3) 1,000 UNITS tablet
1,000 units PO DAILY
multivitamin with folic acid [Tab-A-Ara] 1 TABLET tablet
1 tab PO DAILY
metoprolol tartrate 25 mg Tablet
50 mg PO QPM
furosemide [Lasix] 20 mg Tablet
20 mg PO DAILY
omega 8-rby-kxe-fish oil [Fish Oil] 1,000 mg (120 mg-180 mg) Capsule
1 cap PO BID
insulin glargine [Lantus U-100 Insulin] 100 unit/mL Solution
15 unit SC HS
ferrous sulfate 325 mg (65 mg iron) Tablet
325 mg PO DAILY
gabapentin 300 mg Capsule
600 mg PO QPM
insulin aspart U-100 [Novolog FlexPen U-100 Insulin] 100 unit/mL (3 mL) Insulin Pen
1 sliding scale dose SC AC
Referrals:
UNKNOWN - PT NOT,INTERVIEWE [Family Provider]
Activity Restrictions/Additional Instructions:
As discussed, urinalysis showed blood cells in the urine. Please follow-up with your french instructor and your endodontic assistant as scheduled. Please complete your blood work. Please continue to take your iron supplementation.
Your CAT scan did not show any evidence of acute abnormalities. There was a moderate stool burden.
PLEASE RETURN THE EMERGENCY DEPARTMENT SHOULD YOU DEVELOP ANY ACUTE WORSENING OR RETURN OF YOUR SYMPTOMS, INTRACTABLE NAUSEA OR VOMITING, INABILITY TOLERATE ORAL INTAKE, FEVERS OR CHILLS, RECTAL BLEEDING, DARK TARRY STOOLS, VOMITING BLOOD,
LIGHTHEADEDNESS, DIZZINESS, CHEST PAIN, SHORTNESS OF BREATH, OR ANY SIGNS OR SYMPTOMS WORRISOME TO YOU.
Interventions
Interventions:
*Risk Screen - Suicide Last Done: 12/05/24 20:26
*General Assessment Last Done: 12/05/24 21:59
*Neglect/Abuse Screening Last Done: 12/05/24 20:26
*ED- Fall Risk Assessment Last Done: 12/05/24 21:59
*ED COVID-19 Vaccine History Last Done: 12/05/24 21:59
*Nursing Disposition Last Done: 12/06/24 02:37
FF-Ftjiti-Bhditzsvjo Assessment Last Done: 12/05/24 21:59
Discharge Date and Time
Discharge Date/Time: 12/06/24 02:38
Print Language: KOSOVAN
[2024-12-05 22:52] LABS: Urine Red Blood Cell 26-30 /HPF (0-2); Urine Squamous Cell 0-2 /LPF (Few); Urine White Cell 0-2 /HPF (0-5)
[2024-12-05] MEDS: OMNIPAQUE 50 ML PO (22:55)
[2024-12-05 23:00] VITALS: BP 145/79
[2024-12-05] MEDS: NEURONTIN 600 MG PO (23:21)
[2024-12-06] VITALS: BP 136/121
[2024-12-06 01:05] VITALS: BP 137/65
[2024-12-06 02:00] VITALS: BP 129/55
== END 2024-12-06 02:38 | disposition home or self-care (01) ==
LOC: EMR 20:23
PROVIDERS: Emergency Medicine; EMERGENCY PHYSICIAN Emergency Medicine
DX: R10.9 Unspecified abdominal pain (principal); R31.29 Other microscopic hematuria; I12.9 Hypertensive chronic kidney disease with stage 1 through stage 4 chronic kidney disease, or unspecified chronic kidney disease; E11.22 Type 2 diabetes mellitus with diabetic chronic kidney disease; N18.9 Chronic kidney disease, unspecified; E78.00 Pure hypercholesterolemia, unspecified; I25.10 Atherosclerotic heart disease of native coronary artery without angina pectoris; Z82.49 Family history of ischemic heart disease and other diseases of the circulatory system; Z83.3 Family history of diabetes mellitus; Z86.73 Personal history of transient ischemic attack (TIA), and cerebral infarction without residual deficits; Z90.49 Acquired absence of other specified parts of digestive tract; Z95.1 Presence of aortocoronary bypass graft
CPT/HCPCS: 99284; 74176; 80053; 81003; 81015; 83690; 85025

== ENCOUNTER 2024-12-19 00:16 | Emergency (ER) | payer OTHER, SELFPAY ==
[2024-12-19 00:18] VITALS: BP 112/74
[2024-12-19 00:44] VITALS: BMI 22.5
--- NOTE | 2024-12-19 00:48 | EDRN ---
Pt complains of abdominal pain and granddaughter adds pt vomited. Pain started 2100 and is constant throughout abdomen described as dull. Pt had dry heaves at first then vomited once. No fever/chills/cough, cp, sob, urinary symptoms,
diarrhea/constipation. Nausea gone since pt vomited. Pt was not hungry at dinner so he did not eat much. Pt cannot recall what he had.
[2024-12-19 01:04] VITALS: BP 150/87
[2024-12-19 01:05] LABS: Hematocrit 41.5 % (39.0-52.0); Hemoglobin 13.8 g/dL (13.0-18.0); Mean Corp Hgb Conc. 33.3 g/dL (33.0-37.0); Mean Corpuscular Volume 89.4 fL (80.0-94.0); Nucleated Red Blood Cells % 0 % (-); Platelet Count 220 10^3/uL (130-400); Red Cell Dist. Width 16.1 % (11.5-14.5)
[2024-12-19 01:28] LABS: Urine Character Clear (Clear)
[2024-12-19 01:33] LABS: Blood Urea Nitrogen 28 mg/dl (9-20); Calcium 9.4 mg/dl (8.4-10.2); Carbon Dioxide 31 mmol/L (22-30); Chloride 99 mmol/L (98-107); Estimated Creatinine Clearance 35 ml/min; Glucose 208 mg/dl (70-99); Lipase 208 U/L (23-300); Sodium 139 mmol/L (135-145); eGFR 45.34
--- NOTE | 2024-12-19 01:37 | ED.GENMED ---
History of Present Illness
General
Chief Complaint: Abdominal Symptoms
Source: patient
Exam Limitations: none
Time Seen by Provider: 12/19/24 01:27
History of Present Illness
History of Present Illness:
84-year-old male presents with the onset of mid abdominal pain and vomiting. This started several hours prior to arrival. He has been moving his bowels. No fevers. He does note chills. Pain does not radiate to the back. No chest pain or
shortness of breath. No diarrhea. No black or dark stools. He was here several weeks ago for similar issues but he was not vomiting at that time.
Past History
Past History
ED Past Medical History: CAD, CVA, GERD, HTN, Hypercholesterolemia, NIDDM and Other (Patient has a heart murmur, jaundice, diverticulosis, esophageal structures, pancreatitis, impaired vision.)
ED Past Surgical History: Cardiac, Cholecystectomy and Other (Has had surgery for left eye, hernia surgery, bilateral foot surgery, CABG, pseudocyst of pancreas strain, multiple esophageal dilations, date place and then reversed)
Social History
Tobacco: Non-smoker
Alcohol: None
Drug: None
Personal:
Living: alone
Employment: Retired
Family History
Family History: Diabetes and Hypertension
Phy Exam
Physical Exam
Physical Exam:
General: Well-appearing male no acute respiratory distress
HEENT normocephalic atraumatic
Heart: Regular rate and rhythm
Lungs: Clear no wheeze
Abdomen is soft but tender to the mid abdomen slightly distended. There are multiple healed surgical incisions over the abdomen
Course
Orders/Labs/Results
Orders:
Orders
12/19/24 00:51
IV Insert/Care/Rem.- Treatment PRN
12/19/24 01:00
Basic Metabolic Panel Urgent
Comment: NO K
Complete Blood Count/With Diff Urgent
Lipase Urgent
12/19/24 01:11
Urinalysis Reflex To Culture Urgent
Date Specimen was Collected: 12/19/24
Time Specimen was Collected: 01:09
Urine Microscopic Reflex Cult Urgent
12/19/24 01:37
CT Abd/pelvis W Iv Cont Urgent
Comment:
Reason For Exam: abdominal pain, vomiting
12/19/24 01:40
Ondansetron Injectable [Zofran] 4 mg IV NOW STA
12/19/24 01:44
0.9% Sodium Chloride 500 ml [Nss] 500 ml IV BOLUS
12/19/24 02:14
Hep Liver [[id number]] Urgent
Lactic Acid Urgent
Potassium Urgent
Abnormal Lab Results
12/19/24 12/19/24 12/19/24
01:00 01:11 02:14
WBC 19.6 H 10^3/uL
(4.8-10.8)
RBC 4.64 L 10^6/uL
(4.70-6.10)
RDW 16.1 H %
(11.5-14.5)
Abs Immat Gran (auto) 0.1 H 10^3/uL
(0-0.05)
Absolute Neuts (auto) 17.7 H 10^3/uL
(1.4-6.5)
Absolute Lymphs (auto) 0.4 L 10^3/uL
(1.2-3.4)
Absolute Monos (auto) 1.3 H 10^3/uL
(0.1-0.6)
Neutrophils % 89.9 H %
(42.2-75.2)
Lymphocytes % 2.0 L %
(20.5-51.1)
Carbon Dioxide 31 H mmol/L
(22-30)
BUN 28 H mg/dl
(9-20)
Creatinine 1.5 H mg/dL
(0.7-1.3)
Glucose 208 H mg/dl
(70-99)
Direct Bilirubin 0.7 H mg/dl
(0.0-0.4)
Ur Occult Blood Reflex 1+ A
(Negative)
Urine RBC 3-6 A /HPF
(0-2)
Urine Bacteria (Reflex) Few A
(Negative)
Urine Glucose 3+ A
(Negative)
Urine Albumin (Reflex) 2+ A
(Neg - Trace)
12/19/24 01:00
12/19/24 02:14
Vital Signs
Initial and Last Documented VS:
Initial Vital Signs
Temp Pulse Resp BP Pulse Ox
98.2 F 78 24 112/74 98
12/19/24 00:18 12/19/24 00:18 12/19/24 00:18 12/19/24 00:18 12/19/24 00:18
Last Documented Vital Signs
Temp Pulse Resp BP Pulse Ox
98.2 F 66 19 127/59 98
12/19/24 00:18 12/19/24 03:00 12/19/24 03:00 12/19/24 03:00 12/19/24 01:40
MDM/Problems Addressed
Differential Diagnosis Includes:
Abdominal pain with vomiting. Consider viral illness versus bowel obstruction versus pancreatitis versus colitis
Check labs for electrolyte abnormality. Will hydrate and treat with Zofran. CT pending
*Pulse Oximetry
SaO2: 98
Oxygen Mode of Delivery: Room air
Patient hypoxic: no
*Critical Care Note
Total Time (30-74mins, 75-104mins- exclusive of procedures): Not Applicable
Update Note
Update Note:
Labs reviewed leukocytosis. Patient reexamined feeling much better. His pain is gone. His abdomen is benign upon reassessment. CT demonstrates distal stomach wall thickening at the junction of the duodenum suggest either gastritis or duodenitis.
Lipase is normal. Recommended bland diet clear liquids. He has an appointment for an endoscopy in about 10 days. I advise he keep this. No indication for admission at this time. Stable for discharge
ED Attending Note
-
Portions of this chart may have been created with voice recognition software.� Occasional wrong word or��sound alike� substitutions may have occurred due to the inherent limitations of voice recognition software.
Discharge Plan
Departure
Patient Disposition: Home (Routine Discharge)
Date of Disposition: 12/19/24
Time of Disposition: 03:12
Patient with high blood pressure during this ER visit?: No
Discharge Problem:
Gastritis and duodenitis
Instructions: [place] Diet
Prescriptions:
No Action
metoprolol tartrate 25 MG tablet
25 mg PO DAILY
aspirin 81 MG tablet,delayed release (DR/EC)
81 mg PO QPM
gabapentin 300 MG capsule
300 mg PO BID@0800,1200
pantoprazole 40 MG tablet,delayed release (DR/EC)
40 mg PO DAILY
atorvastatin 40 MG tablet
40 mg PO QPM
cholecalciferol (vitamin D3) 1,000 UNITS tablet
1,000 units PO DAILY
multivitamin with folic acid [Tab-A-Ara] 1 TABLET tablet
1 tab PO DAILY
metoprolol tartrate 25 mg Tablet
50 mg PO QPM
furosemide [Lasix] 20 mg Tablet
20 mg PO DAILY
omega 4-stm-gnh-fish oil [Fish Oil] 1,000 mg (120 mg-180 mg) Capsule
1 cap PO BID
insulin glargine [Lantus U-100 Insulin] 100 unit/mL Solution
15 unit SC HS
ferrous sulfate 325 mg (65 mg iron) Tablet
325 mg PO DAILY
gabapentin 300 mg Capsule
600 mg PO QPM
insulin aspart U-100 [Novolog FlexPen U-100 Insulin] 100 unit/mL (3 mL) Insulin Pen
1 sliding scale dose SC AC
fludrocortisone 0.1 mg Tablet
0.1 mg PO DAILY
amlodipine 10 mg Tablet
10 mg PO DAILY
Referrals:
Johann Stern MD [Family Provider, Family Practice]
Activity Restrictions/Additional Instructions:
Continue antacids. Eat a bland diet. Return if worse otherwise follow-up with your GI doctor as planned
Interventions
Interventions:
*Risk Screen - Suicide Last Done: 12/19/24 00:18
*General Assessment Last Done: 12/19/24 00:45
*Neglect/Abuse Screening Last Done: 12/19/24 00:18
*ED- Fall Risk Assessment Last Done: 12/19/24 01:07
PV-Chetdd-Sqyefxapde Assessment Last Done: 12/19/24 01:07
Discharge Date and Time
Print Language: BRITISH
[2024-12-19 01:50] VITALS: BP 138/55
[2024-12-19 02:00] VITALS: BP 156/58
[2024-12-19] MEDS: ZOFRAN 4 MG IV (02:17)
[2024-12-19] MEDS: NSS 500 IV (02:17)
--- NOTE | 2024-12-19 02:27 | EDRN ---
TT sent to [facility] regarding infiltrated IV R forearm after CT with IV contrast. Area above iv is swollen with slight bruise like discoloration. Instructed to apply ice and elevate extremity. IV removed and pressure dressing applied. Pt denies pain
in area. R arm elevated on pillow and ice pack applied.
[2024-12-19 02:36] LABS: ALT (SGPT) 24 U/L (0-50); AST (SGOT) 33 U/L (17-59); Albumin 4.2 g/dl (3.5-5.0); Alkaline Phosphatase 84 U/L (38-126); Potassium 4.2 mmol/L (3.5-5.1); Total Protein 6.6 g/dl (6.3-8.2)
[2024-12-19 03:00] VITALS: BP 127/59
--- NOTE | 2024-12-19 03:40 | EDRN ---
[address] dye infiltration site in R arm was larger when this RN got pt ready for discharge. Dr Sandra informed and agreed with ice and elevation, nothing more to do. Pt informed of this. Pt denies pain in area. Pt said he has
no ice at home. Instructed to use bagged vegetables or anything similar he has for an ice pack. On the way out of ED, this RN refilled pt's ice pack and gave him a second ice pack filled with ice. Instructed pt to keep them in freezer and remove
to ice area then put back in freezer.
== END 2024-12-19 03:35 | disposition home or self-care (01) ==
LOC: EMR 00:16
PROVIDERS: Emergency Medicine; Physician Assistant; EMERGENCY PHYSICIAN Emergency Medicine; FAMILY PHYSICIAN Family Medicine
DX: K29.70 Gastritis, unspecified, without bleeding (principal); K29.80 Duodenitis without bleeding; D72.829 Elevated white blood cell count, unspecified; E11.9 Type 2 diabetes mellitus without complications; I25.810 Atherosclerosis of coronary artery bypass graft(s) without angina pectoris; I10 Essential (primary) hypertension; E78.00 Pure hypercholesterolemia, unspecified; R01.1 Cardiac murmur, unspecified; K21.9 Gastro-esophageal reflux disease without esophagitis; Z79.82 Long term (current) use of aspirin; Z79.4 Long term (current) use of insulin; Z95.1 Presence of aortocoronary bypass graft; Z86.73 Personal history of transient ischemic attack (TIA), and cerebral infarction without residual deficits; Z83.3 Family history of diabetes mellitus; Z82.49 Family history of ischemic heart disease and other diseases of the circulatory system
CPT/HCPCS: 99284; 96374; 96361; 74177; 80048; 80076; 81003; 81015; 83605; 83690; 84132; 85025; Q9967

== ENCOUNTER 2025-01-17 06:26 | Day surgery (SDC) | payer OTHER, SELFPAY ==
[2025-01-17 09:16] LABS: Glucose - Point of Care 194 mg/dl (70-99)
== END 2025-01-17 10:44 | disposition home or self-care (01) ==
LOC: GI 06:26
PROVIDERS: ATTENDING PHYSICIAN Internal Medicine Gastroenterology
DX: K22.2 Esophageal obstruction (principal); K44.9 Diaphragmatic hernia without obstruction or gangrene; K31.819 Angiodysplasia of stomach and duodenum without bleeding; D50.0 Iron deficiency anemia secondary to blood loss (chronic); Q39.9 Congenital malformation of esophagus, unspecified; R13.10 Dysphagia, unspecified
CPT/HCPCS: 43255; 82962